=== PATIENT | female | born 1935 | race Caucasian/White ===

== ENCOUNTER 2023-07-02 18:19 | Inpatient (IN) | payer OTHER, SELFPAY ==
[2023-07-02] VITALS (7 sets, daily range): BP systolic 170–212; BP diastolic 62–93; BMI 29.2
--- NOTE | 2023-07-02 16:10 | ED.GENMED ---
History of Present Illness
General
Chief Complaint: Fall
Source: patient and ambulance crew
Exam Limitations: none
Time Seen by Provider: 07/02/23 15:57
Nursing documentation reviewed up to this point in time: agreed with
Travel History
Have you had any contact with someone who has COVID-19?: No
Do you have any symptoms of coronavirus? Fever > 100 degrees, chills, cough, shortness of breath, sore throat, loss of taste or smell, muscle aches, or headache?: No
History of Present Illness
History of Present Illness:
88 yo female presents to the emergency department complaining of trip and fall and right hip/groin pain. She noted that her foot is externally rotated, but she was able to move it back in. She has not stood up since this happened. She denies any
her head, denies any blood thinners.
Past History
Past History
ED Past Medical History: HTN and Hypercholesterolemia
ED Past Surgical History: Gynecological (Partial hysterectomy) and Orthopedic (Left ankle surgery)
Social History
Tobacco: Former smoker
Alcohol: None
Drug: None
Review of Systems
Review of Systems
Allergies reviewed?: Yes
All Other Systems: Not applicable
Constitutional: Reports no symptoms
EENT: Reports no symptoms
Respiratory: Reports no symptoms
Cardiac: Reports no symptoms
ABD/GI: Reports no symptoms
: Reports no symptoms
Musculoskeletal: Reports joint pain
Skin: Reports no symptoms
Neurological: Reports no symptoms
Endocrine: Reports no symptoms
Hematologic/Lymphatic: Reports no symptoms
Psychiatric: Reports no symptoms
Phy Exam
Physical Exam
Physical Exam:
Physical Exam
General: no apparent distress, not acutely ill
Neck: supple. no meningeal signs. normal posterior pharynx
Heart: s1/s2 regular rate and rhythm, no murmur. equal radial
pulses.
HEENT: Pupils equal round reactive to light, EOMI
Lungs: no acute respiratory distress. clear bilaterally
Abdomen: normal bowel sounds. not tender. no CVAT
Neuro: alert and oriented. no focal neurological deficits cranial nerves II through XII intact
Skin: no rash
Psychiatric: well kept. interactive and cooperative
Extremities: no edema. no calf tenderness. negative homans. good distal pulses, right hip tender to palpation
Course
Orders/Labs/Results
Orders:
Orders
07/02/23 16:07
IV Insert/Care/Rem.- Treatment PRN
Hip, Right 2-3 Views [CR Hip - RT w/wo Pel 2-3 Vw*] Urgent
Comment:
Reason For Exam: right hip pain after fall
Include a pelvis x-ray?: Yes
07/02/23 16:18
Type+Screen Urgent
Complete Blood Count/With Diff Urgent
Comprehensive Metabolic Panel Urgent
Abnormal Lab Results
07/02/23
16:18
RBC 4.13 L 10^6/uL
(4.20-5.40)
Hct 35.9 L %
(37.0-47.0)
Absolute Lymphs (auto) 0.8 L 10^3/uL
(1.2-3.4)
Immature Gran % 0.7 H %
(0-0.5)
Neutrophils % 79.9 H %
(42.2-75.2)
Lymphocytes % 12.9 L %
(20.5-51.1)
Sodium 126 L mmol/L
(135-145)
Chloride 96 L mmol/L
(98-107)
BUN 18 H mg/dl
(7-17)
Glucose 111 H mg/dl
(70-99)
07/02/23 16:18
07/02/23 16:18
Vital Signs
Initial and Last Documented VS:
Initial Vital Signs
Temp Pulse Resp BP Pulse Ox
98.1 F 63 16 212/65 94
07/02/23 15:00 07/02/23 15:00 07/02/23 15:00 07/02/23 15:00 07/02/23 15:00
Last Documented Vital Signs
Temp Pulse Resp BP Pulse Ox
98.1 F 63 16 180/62 94
07/02/23 15:00 07/02/23 15:00 07/02/23 15:00 07/02/23 16:18 07/02/23 15:00
MDM/Problems Addressed
Differential Diagnosis Includes:
Right hip fracture, pelvic fracture
MDM/Problems Addressed:
88-year-old female with right proximal femur fracture, transcervical. Hyponatremia. Unclear etiology. Admit to hospitalist. Orthopedics, Dr. Martin notified.
*Radiology
Radiology exam reviewed: radiology read reviewed (Right hip x-ray shows proximal femur fracture)
*Pulse Oximetry
Patient hypoxic: no
*Irrigator Overhead Interpretation
Rate: Irrigator Overhead- N/A
*Critical Care Note
Total Time (30-74mins, 75-104mins- exclusive of procedures): Not Applicable
Patient Management
Social determinants of health affecting care: Living situation
Discussion with other providers: Hospitalist and Posting Machine Operator (Dr. Martin, orthopedics)
Escalation/DeEscalation of care consider admission/obs:
Admit indicated
ED Attending Note
-
Portions of this chart may have been created with voice recognition software.� Occasional wrong word or��sound alike� substitutions may have occurred due to the inherent limitations of voice recognition software.
Discharge Plan
Departure
Patient Disposition: Admit
Date of Disposition: 07/02/23
Time of Disposition: 17:11
Admit to: Telemetry
Presentation/result/management discussed w/ accepting MD/DO: Hospitalist
Patient with high blood pressure during this ER visit?: Yes
Condition: Fair
Discharge Problem:
Closed transcervical fracture of proximal end of right femur, Acute hyponatremia
Instructions: BLOOD PRESSURE
Prescriptions:
No Action
atenolol 50 mg tablet
50 mg PO DAILY
cyclosporine [Restasis] 0.05 % dropperette
1 drp LEFT EYE BID
cyclosporine [Restasis] 0.05 % dropperette
1 drp RIGHT EYE DAILY
PreserVision AREDS 2,148 mcg-113 mg-45 mg-17.4mg Tablet
1 tab PO BID
Referrals:
UNKNOWN - PT DOES,NOT KNOW [Family Provider] -
Interventions
Interventions:
*Risk Screen - Suicide Last Done: 07/02/23 15:03
*General Assessment Last Done: 07/02/23 15:03
*Neglect/Abuse Screening Last Done: 07/02/23 15:03
*ED COVID-19 Vaccine History Last Done: 07/02/23 15:03
ED-Musculoskeletal Assessment Last Done: 07/02/23 15:05
ED- Neurological Assessment Last Done: 07/02/23 15:04
ED-Skin Assessment Last Done: 07/02/23 15:05
Discharge Date and Time
Print Language: KOREAN
[2023-07-02 16:30] LABS: % Basophils 0.3 % (0-2); % Eosinophils 1.8 % (0-6); % Immature Granulocytes 0.7 % (0-0.5); % Lymphocytes 12.9 % (20.5-51.1); % Monocytes 4.4 % (1.7-9.3); % Neutrophils 79.9 % (42.2-75.2); Absolute Eosinophils 0.1 10^3/uL (0-0.7); Absolute Lymphocytes 0.8 10^3/uL (1.2-3.4); Absolute Monocytes 0.3 10^3/uL (0.1-0.6); Absolute Neutrophils 4.9 10^3/uL (1.4-6.5); Hematocrit 35.9 % (37.0-47.0); Hemoglobin 12.3 g/dL (12.0-16.0); Mean Corp Hgb Conc. 34.3 g/dL (33.0-37.0); Mean Corpuscular Hgb 29.8 pg (27.0-31.0); Mean Corpuscular Volume 86.9 fL (81.0-99.0); Mean Platelet Volume 8.9 fL (7.4-10.4); Nucleated Red Blood Cells % 0 %; Platelet Count 312 10^3/uL (130-400); Red Blood Cell Count 4.13 10^6/uL (4.20-5.40); Red Cell Dist. Width 13.7 % (11.5-14.5); White Blood Cell Count 6.1 10^3/uL (4.8-10.8)
[2023-07-02 16:49] LABS: ALT (SGPT) 15 U/L (0-35); AST (SGOT) 27 U/L (14-36); Alkaline Phosphatase 70 U/L (38-126); Blood Urea Nitrogen 18 mg/dl (7-17); Calcium 9.7 mg/dl (8.4-10.2); Carbon Dioxide 24 mmol/L (22-30); Chloride 96 mmol/L (98-107); Glucose 111 mg/dl (70-99); Potassium 3.7 mmol/L (3.5-5.1); Sodium 126 mmol/L (135-145); Total Bilirubin 0.8 mg/dl (0.2-1.3); Total Protein 7.2 g/dl (6.3-8.2); eGFR > 60.00
[2023-07-02 17:45] LABS: Osmolality Serum 271 mOsm/kg (275-300)
--- NOTE | 2023-07-02 17:50 | HPS.HSE ---
Family Physician
-
Family Physician: NOT KNOW UNKNOWN - PT DOES
Chief Complaint
-
Fall
History of Present Illness
Patient is an 88-year-old female past medical history of hypertension who presents with right hip pain following a fall earlier today. Patient reports she got up from a chair when her sneaker got caught on carpet. She was unable to recover and
fell. She notes her foot is rotated, and she has not been able to stand since the fall. She denies any in her head during the event.
Medical History
Past Medical History
Past Medical History: Reports Other
Additional Past Medical History:
Essential Hypertension
Past Surgical History: Reports Other
Additional Past Surgical History:
Left Ankle Surgery
Partial Hysterectomy
Social History
Tobacco: Former Smoker
Alcohol: None
Family History
Family History: Not pertinent
Allergies / Home Medications
Allergies reflects when Allergies were last updated in [employer].
Home Medications with original date entered in [employer]
Allergy/Medication List:
Allergies
Allergy/AdvReac Type Severity Reaction Status Date / Time
No Known Allergies Allergy Unverified 12/30/20 14:06
Home Medications
atenolol 50 mg tablet 50 mg PO DAILY 07/02/23
cyclosporine 0.05 % eye drops in a dropperette (Restasis) 1 drp LEFT EYE BID 07/02/23
cyclosporine 0.05 % eye drops in a dropperette (Restasis) 1 drp RIGHT EYE DAILY 07/02/23
vitamins A,C,N-ziye-thwaop 2,148 mcg-113 mg-45 mg-17.4 mg tablet (PreserVision AREDS) 1 tab PO BID 07/02/23
Review of Systems
-
A 12 point ROS was completed and negative except as noted: Yes
Constitutional: Denies Fever or Chills
Respiratory: Denies Cough or Trouble Breathing
Cardiac: Denies Chest Pain or Palpitations
Physical Exam
Vital Signs
Vital Signs
Temp Pulse Resp BP Pulse Ox
98.1 F 63 16 180/62 94
07/02/23 15:00 07/02/23 15:00 07/02/23 15:00 07/02/23 16:18 07/02/23 15:00
Physical Exam
General: Comfortable and Conversant
HEENT: Anicteric and Moist mucous membranes
Respiratory: Clear and Non Labored Respirations
Cardiac: S1/S2, Regular Rhythm and Murmur (2/6 systolic murmur heard best at right upper sternal border)
GI: Soft and Non Tender
Rectal: Deferred by Provider
Musculoskeletal: No Clubbing, No Cyanosis and Other (RLE slightly shortened and externally rotated)
Skin: Warm and Dry
Neuro: Awake, Alert, Oriented and Nonfocal/grossly intact
Psych: Calm
Laboratory Results
-
07/02/23 16:18
07/02/23 16:18
Laboratory Results
Total Bilirubin 0.8 mg/dl (0.2-1.3) 07/02/23 16:18
AST 27 U/L (14-36) 07/02/23 16:18
ALT 15 U/L (0-35) 07/02/23 16:18
Alkaline Phosphatase 70 U/L (38-126) 07/02/23 16:18
Data Reviewed
-
Diagnostic Radiology: Report Reviewed by me
Lab Data: Labs Reviewed by me
Impression/Plan
-
Right Hip Fracture
-Consult Ortho
-NPO after midnight for possible OR tomorrow afternoon, pending repeat sodium levels
Hyponatremia
-Consult Nephrology
-Check Urine Sodium, and Urine Osmo
-Give NSS overnight as patient appears slightly volume depleted
-Recheck sodium in AM
Essential Hypertension
-Continue atenolol
DVT proph: SCDs
Code Status: Full Code
--- NOTE | 2023-07-02 18:14 | W.PN.UPDATE ---
Update Note
Progress Note Update
This is an addendum to H&P by Shira Wilkerson on 07/02/23
pt seen and examined independently--agree with findings as set forth
GENERAL: well developed, well nourished, female in no apparent distress
HEENT: NC/AT--no O2
HEART: regular rate and rhythm, +S1, +S2, 3/6 DYLLAN
LUNGS : clear to auscultation bilaterally
ABDOM: soft, nontender, nondistended, + bowel sounds
EXT: no cyanosis, clubbing, or edema, right leg shortened and externally rotated
NEUROLOGIC: grossly intact, seems hard of hearing
mechanical fall without prodrome--foot stuck--Right Hip Fracture--consult ortho--NPO after midnight for possible OR tomorrow afternoon, pending repeat sodium levels--will eventually need PT/OT--pain control
Hyponatremia--sodium too low for surgery--cont IVF--check Urine Sodium, and Urine Osmo--consult renal--hopefully sodium will improve post IVF
Essential Hypertension--Continue atenolol
DVT proph: SCDs
Code Status: Full Code
[2023-07-02 18:23] LABS: TSH Reflex To Free T4 3.72 uIU/ml (0.47-4.68)
[2023-07-02] MEDS: DILAUDID 0.25 MG IV (20:01)
[2023-07-02] MEDS: SENOKOT 17.1999999999999993 MG PO (22:12)
[2023-07-02] MEDS: COLACE 100 MG PO (22:12)
[2023-07-02] MEDS: RESTASIS 0.05% OPHTHALMIC EMULSION 1 DROPS LEFT EYE (22:18)
[2023-07-02] MEDS: ROXICODONE 2.5 MG PO (22:19)
[2023-07-02] MEDS: OCUVITE SOFTGEL PO ×2 (22:19→22:25)
[2023-07-02] MEDS: NSS 1000 IV (22:19)
--- NOTE | 2023-07-02 23:00 | PTCARENOTE ---
Pt admitted to 2S. AAOX3, anxious and ge weakness. SBP has been >160. Director Of Institutional Giving notified. LUMBEE and forgetful at times. SB in the monitor. Traces B/L LE and Rt hip edema. C/O minimal pain. See MAR. Lung sounds are diminished at the bases, shallow breathing.
SaO2 94% RA. Abd round and obese. purewick in place. pt will be NPO after midnight. Call manuel within reach. Will continue with tx plan.
[2023-07-02] MEDS: TYLENOL 650 MG PO (23:07)
[2023-07-03 01:33] LABS: Urine Albumin Negative (Neg - Trace); Urine Bilirubin Negative (Negative); Urine Character Clear (Clear); Urine Color Yellow; Urine Glucose Negative (Negative); Urine Ketone 3+ (Negative); Urine Leukocyte Trace (Negative); Urine Nitrite Negative (Negative); Urine Occult Blood Negative (Negative); Urine Urobilinogen Negative (Neg - 1+)
[2023-07-03 01:41] LABS: Urine Squamous Cell 16-20 /LPF (Few)
[2023-07-03 01:42] LABS: Urine Bacteria Moderate (Negative)
[2023-07-03 01:46] LABS: Urine Sodium 112 mmol/L (30-90)
[2023-07-03 02:04] LABS: Osmolality Urine 754 mOsm/kg (300-900)
[2023-07-03] MEDS: ROXICODONE 5 MG PO (02:30)
[2023-07-03 03:05] VITALS: BP 139/51
[2023-07-03] MEDS: TYLENOL 650 MG PO ×3 (03:38→20:29)
[2023-07-03 04:57] LABS: Hematocrit 32.2 % (37.0-47.0); Hemoglobin 11.1 g/dL (12.0-16.0); Mean Corp Hgb Conc. 34.5 g/dL (33.0-37.0); Mean Corpuscular Hgb 29.9 pg (27.0-31.0); Mean Corpuscular Volume 86.8 fL (81.0-99.0); Mean Platelet Volume 9.5 fL (7.4-10.4); Platelet Count 273 10^3/uL (130-400); Red Blood Cell Count 3.71 10^6/uL (4.20-5.40); Red Cell Dist. Width 13.5 % (11.5-14.5); White Blood Cell Count 9.2 10^3/uL (4.8-10.8)
[2023-07-03 05:30] LABS: Blood Urea Nitrogen 17 mg/dl (7-17); Calcium 9.1 mg/dl (8.4-10.2); Carbon Dioxide 26 mmol/L (22-30); Chloride 95 mmol/L (98-107); Estimated Creatinine Clearance 66 ml/min; Glucose 134 mg/dl (70-99); Potassium 3.6 mmol/L (3.5-5.1); Sodium 125 mmol/L (135-145); eGFR > 60.00
[2023-07-03 07:10] VITALS: BP 156/61
--- NOTE | 2023-07-03 08:11 | W.PN.UPDATE ---
Update Note
Progress Note Update
Full ortho consult to be dictated.
88 year old female who fell onto right hip.
X-rays show right hip acute transcervical fracture.
Recommend right hip hemiarthroplasty under direction of Dr. Wilde or Dr. Roberts today.
Hyponatremia - sodium this morning 125.
Will await nephrology consultation and medical clearance to proceed to OR.
Right hip marked as correct surgical site.
Consent obtained and placed in patient's chart.
IV antibiotics and irrigation exhibition specialist to OR.
NPO for OR.
[2023-07-03] MEDS: DILAUDID 0.25 MG IV ×2 (08:26→14:43)
[2023-07-03] MEDS: RESTASIS 0.05% OPHTHALMIC EMULSION 1 DROPS LEFT EYE ×2 (08:26→20:30)
[2023-07-03] MEDS: RESTASIS 0.05% OPHTHALMIC EMULSION 1 DROPS RIGHT EYE (08:27)
[2023-07-03] MEDS: COLACE PO (08:46)
[2023-07-03] MEDS: OCUVITE SOFTGEL PO (08:46)
[2023-07-03] MEDS: SENOKOT PO ×2 (08:46→20:40)
[2023-07-03] MEDS: TENORMIN PO (08:46)
[2023-07-03] MEDS: TYLENOL PO ×2 (09:11→16:42)
--- NOTE | 2023-07-03 10:14 | W.CON.NEPH ---
Consultation
-
Date/Time Consultation Requested: 07/03/2023 7 AM
Date/Time Consultation Performed: 07/03/2023 10:00 AM
Requesting Provider: Libra
Performing Provider: Ty
Reason for Consultation: Hyponatremia
Medical History
-
Chief Complaint: Hyponatremia
History of Present Illness:
The patient is an 88-year-old female with a past medical history of hypertension maintained on atenolol. She is maintained chronically on Restasis for dry eye. She has a prior history of hypothyroidism but stated that her medications were
discontinued a few years prior . She presented to the hospital last evening following a trip and fall with subsequent right hip pain and fracture. On presentation to the hospital her serum sodium level was depressed at 126. She was given normal
saline last evening and her sodium is now worsened to 125 and nephrology was asked to see the patient. The patient does admit to having some visual hallucinations this past week.
Past Medical History
Hypertension
Dry eye
Macular degeneration
History of ankle surgery
Partial Hysterectomy
Previous history of hyponatremia off medication
Social History
Tobacco: Former Smoker
Alcohol: None
Family History
No chronic kidney disease
Allergies / Home Medications
Allergy/AdvReac Type Severity Reaction Status Date / Time
No Known Allergies Allergy Unverified 12/30/20 14:06
�Medication �Instructions �Recorded �Confirmed �Type
atenolol 50 mg tablet 50 mg PO DAILY 07/02/23 07/02/23 History
cyclosporine 0.05 % eye drops in a 1 drp LEFT EYE BID 07/02/23 07/02/23 History
dropperette (Restasis)
cyclosporine 0.05 % eye drops in a 1 drp RIGHT EYE DAILY 07/02/23 07/02/23 History
dropperette (Restasis)
vitamins A,C,O-lntu-vcaacf 2,148 1 tab PO BID 07/02/23 07/02/23 History
mcg-113 mg-45 mg-17.4 mg tablet
(PreserVision AREDS)
Review of Systems
-
History Source: Patient
All other systems: Negative unless noted
Constitutional: No Symptoms
EENT: Other (Headache which is positional)
Respiratory: No Symptoms
Cardiac: No Symptoms
Abdomen/GI: No Symptoms
: No Symptoms
Musculoskeletal: Other (Right hip pain)
Skin: No Symptoms
Neurological: Headache and Other (Noted for some hallucinations earlier this week of new onset)
Physical Exam
Vital Signs
Vital Signs
Temp Pulse Resp BP Pulse Ox
97.9 F 56 18 156/61 95
07/03/23 07:10 07/03/23 08:46 07/03/23 07:10 07/03/23 07:10 07/03/23 07:10
Lab Results
07/03/23 03:57
07/03/23 03:57
WBC 9.2 10^3/uL (4.8-10.8) 07/03/23 03:57
RBC 3.71 10^6/uL (4.20-5.40) L 07/03/23 03:57
Hgb 11.1 g/dL (12.0-16.0) L 07/03/23 03:57
Hct 32.2 % (37.0-47.0) L 07/03/23 03:57
Plt Count 273 10^3/uL (130-400) 07/03/23 03:57
Sodium 125 mmol/L (135-145) L 07/03/23 03:57
Potassium 3.6 mmol/L (3.5-5.1) 07/03/23 03:57
Chloride 95 mmol/L (98-107) L 07/03/23 03:57
Carbon Dioxide 26 mmol/L (22-30) 07/03/23 03:57
BUN 17 mg/dl (7-17) 07/03/23 03:57
Creatinine 0.5 mg/dL (0.6-1.0) L 07/03/23 03:57
eGFR > 60.00 07/03/23 03:57
Glucose 134 mg/dl (70-99) H 07/03/23 03:57
Calcium 9.1 mg/dl (8.4-10.2) 07/03/23 03:57
Albumin 4.0 g/dl (3.5-5.0) 07/02/23 16:18
Physical Exam
General: AOx3
HEENT: PERRL, EOMI, Anicteric, Conjunctivae Clear, Ear/Nose Intact, Hearing Normal, Oropharynx Clear/Moist, Dentition Intact, Neck Supple, Trachea Midline, No JVD and No Thyromegaly
Respiratory: Clear
Cardiac: S1/S2, Regular Rate/Rhythm, Murmur (4 out of 6 systolic ejection murmur best heard at left sternal border) and Pulses (+2 upper and lower)
Breast: Deferred by me
Abdomen: Soft, Nontender, Nondistended, Normal Bowel Sounds and No Hepatosplenomegaly
Rectal: Deferred by Provider
Genito-urinary: No Costovertebral Tender and Clear Urine (Concentrated urine noted)
Musculoskeletal: No Clubbing, No Cyanosis, No Edema and Other (Upper extremities 5 out of 5 left lower extremity 5 out 5, right lower extremity externally rotated and immobile)
Skin: No Rash
Neuro: Nonfocal/Grossly Intact and CN II-XII (Grossly intact)
Hematologic/Lymphatic: No Cervical Lymphadenopathy, No Submandibular Lymphadenopathy and No Supraclavicular Lymphadenopathy
Psych: Mood/afflect pleasant, Insight/judgement good and Appropriate
Assessment/Plan
-
Impression:
Euvolemic hyponatremia
Hypertension
Status post fall with subsequent right hip fracture
Plan:
Hyponatremia:
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
Discontinue normal saline
Urine sodium of 112 not consistent with volume depletion
Maintain fluid restriction at 1200cc per day once po
7.5 mg Samsca provided, recheck lytes at 5pm
Would hold surgery today until serum sodium can be safely adjusted upward
Obtain TSH and free T4
Will check chest x-ray given history of prior tobacco use and now with possible SIADH
HTN:
-maintain atenolol
-Pain likely exacerbating hypertension
-Can provide IV hydralazine as needed if needed
Data Reviewed
-
Radiology: Report Reviewed by me (Right hip x-ray reviewed)
Labs: Labs Reviewed by me (Reviewed urine sodium urine osmolality BMP), Discussed with Physician, Discussed with Patient and Discussed with Family
Old Records: Requested (Old serum sodium levels to be obtained)
--- NOTE | 2023-07-03 11:04 | W.PN.HOSP.TC ---
Today's Communication/Plan
-
apprec renal
advance diet 1200ml fluid restriction
Assessment / Plan
Assessment / Plan
pt is an 88 year old female
mechanical fall without prodrome--foot stuck--Right Hip Fracture--apprec ortho--renal to clear for OR
Hyponatremia--sodium too low for surgery--stop IVF--apprec renal--samsca per renal--follow sodium
Essential Hypertension--Continue atenolol
DVT proph: SCDs
Code Status: Full Code
Anticipated Discharge: > 48 hours
Subjective/Interval History
-
Date of Service: July 03, 2023
pt without c/o
Objective Data
-
Labs:
Laboratory Results
07/03/23 07/03/23
03:57 17:00
WBC 9.2
Hgb 11.1 L
Hct 32.2 L
Plt Count 273
Sodium 125 L Pending
Potassium 3.6 Pending
Chloride 95 L Pending
Carbon Dioxide 26 Pending
BUN 17
Creatinine 0.5 L
Glucose 134 H
Calcium 9.1
Vital Signs:
max temp for 24 hours
07/03/23
03:05
Temp 97.5 F
Vital Signs
Temp Pulse Resp BP Pulse Ox
97.9 F 56 18 156/61 95
07/03/23 07:10 07/03/23 08:46 07/03/23 07:10 07/03/23 07:10 07/03/23 07:10
I&O
07/02/23 07/03/23 07/04/23
06:59 06:59 06:59
Intake Total 990 / 990
Output Total 350 / 350
Balance 640 / 640
Review of Systems
-
All other systems: Reviewed and negative
Physical Exam
-
General: Well Developed, Well Nourished and No Apparent Distress
HEENT: Normocephalic and Atraumatic
Respiratory: Clear to Auscultation; Negative Wheezes, Rales, Rhonchi or Crackles
Cardiac: Regular Rhythm and S1/S2; Negative Murmur
GI: Soft, Nontender, Nondistended and Normal Bowel Sounds
Musculoskeletal: No Clubbing, No Cyanosis and No Edema
Neuro: Awake
--- NOTE | 2023-07-03 11:33 | CM ---
Patient seen at bedside with son and daughter in law, physician. Patient lives alone in a ranch style home during the week but goes to her son's home on the weekends. Patient has a physician at [facility] Amari Mathews and uses the [facility] at
[place]. Patient s/p fall and plan is for surgery possibly tomorrow pending physician assessment. Patient family were provided list of SNF options and PAC data reviewed. Medicare.gov information reviewed. Patient asked about [facility]. Patient
daughter works in infection control with [employer] and patient is very proud of her. Patient son and DIL very involved and supportive. CM will continue to follow for discharge planning needs.
Plan; TBD pending surgery possible need for SNF
[2023-07-03] MEDS: SAMSCA 7.5 MG PO (12:04)
--- NOTE | 2023-07-03 12:35 | CON.ORTHO ---
Consultation
-
Date/Time Consultation Requested: 07/02/2023
Date/Time Consultation Performed: 07/03/2023
Requesting Provider: Shira Wilkerson PA-C
Performing Provider: Narda Garcia PA-C, for Dr. Joe Jane
Reason for Consultation: Right hip fracture
Consultation - Orthopedics
History
HPI: This is an 88-year-old female who presented to [facility] after sustaining a fall onto her right hip. She reports she was getting her taxes done when she went to stand up from a seat. Her foot got caught on the floor as she went to
turn, causing her to trip on the leg of the chair. She landed directly on her right hip. She experienced immediate pain and inability to ambulate, and was brought to the hospital via EMS. X-rays were taken and demonstrated an acute transcervical
fracture of the right hip. She was admitted to the hospitalist service and orthopedic team was consulted for definitive management of her fracture. She reports her pain is well-controlled at rest. She does have a prior history of a left ankle
ORIF as well as removal of hardware. She denies any prior issues with anesthesia.
Past medical history: Significant for hypertension.
Past surgical history: Significant for left ankle ORIF followed by subsequent removal of hardware, Partial hysterectomy.
Social history: Tobacco or alcohol use. Currently lives independently, but getting ready to move into an apartment at her son's house. Uses walker at baseline.
family history: Noncontributory.
Review of systems: All systems reviewed and negative except for those mentioned in HPI.
Allergies / Home Medications
Allergy/AdvReac Type Severity Reaction Status Date / Time
No Known Allergies Allergy Unverified 12/30/20 14:06
�Medication �Instructions �Recorded
atenolol 50 mg tablet 50 mg PO DAILY Blood Pressure 07/02/23
cyclosporine 0.05 % eye drops in a 1 drp LEFT EYE BID Eye Condition 07/02/23
dropperette (Restasis)
cyclosporine 0.05 % eye drops in a 1 drp RIGHT EYE DAILY Eye Condition 07/02/23
dropperette (Restasis)
vitamins A,C,E-lfop-lhncum 2,148 1 tab PO BID Supplement 07/02/23
mcg-113 mg-45 mg-17.4 mg tablet
(PreserVision AREDS)
Vital Signs / Lab Results
Temp Pulse Resp BP Pulse Ox
97.9 F 56 18 156/61 95
07/03/23 07:10 07/03/23 08:46 07/03/23 07:10 07/03/23 07:10 07/03/23 07:10
07/03/23 03:57
Physical examination:
General: Well-developed, well-nourished female in no acute distress.
HEENT: Atraumatic, normocephalic. Neck supple.
Lungs: Nonlabored breathing on room air. No audible wheezing.
Heart: Regular rate and rhythm.
Right hip: Mild tenderness to palpation about lateral hip. No abrasions or skin breakdown. Mild swelling. Minimal ecchymoses. Range of motion not tested due to known fracture. Right leg externally rotated. Calf is soft and nontender to
palpation. Neurovascular intact distally.
Radiographic studies:
X-rays of the right hip from [facility] on 07/02/2023 shows evidence of an acute transcervical fracture of the proximal right femur with 2 cm impaction of the distal fracture fragment.
Assessment / Plan
Assessment: Right hip femoral neck fracture.
Plan: Unfortunately, mildly sustained a femoral neck fracture during her fall yesterday. This will require surgical intervention in the form of a right hip hemiarthroplasty. The procedure was explained in detail along with the associated risks,
benefits, and recovery process. Her son and [id number] were present during the discussion. Surgical and blood transfusion consents were obtained and placed in the patient's chart. The right hip was marked as the correct surgical site. She
will need to be n.p.o. for the surgery. IV antibiotics and irrigation are on-call to the OR. She was noted to be hyponatremic, with a sodium of 126 on admission. We are currently awaiting official evaluation by nephrology with recommendations on
timing of surgery based on the correction of her sodium levels.
Update after patient was seen on rounds this morning. It does not appear as though she will be cleared to proceed with the OR today. Will continue to monitor her sodium levels and will plan to tentatively proceed with a right hip
hemiarthroplasty under the direction of Dr. Roberts pending clearance.
[2023-07-03 15:48] VITALS: BP 134/53
[2023-07-03] MEDS: ZOFRAN 4 MG IV (16:36)
[2023-07-03 17:07] LABS: Carbon Dioxide 28 mmol/L (22-30); Chloride 91 mmol/L (98-107); Potassium 3.6 mmol/L (3.5-5.1); Sodium 124 mmol/L (135-145)
--- NOTE | 2023-07-03 17:16 | W.PN.UPDATE ---
Update Note
Progress Note Update
Patient vomited samsca pill
will give 3% saline instead for 250cc at 30cc/hr
[2023-07-03] MEDS: SODIUM CHLORIDE 3% 250 IV (17:49)
[2023-07-03 19:35] VITALS: BP 135/61
[2023-07-03] MEDS: COLACE 100 MG PO (20:29)
[2023-07-03] MEDS: OCUVITE SOFTGEL 1 CAP PO (20:29)
[2023-07-03 23:16] VITALS: BP 134/63
[2023-07-04] VITALS (13 sets, daily range): BP systolic 105–150; BP diastolic 38–71; PULSE 73–97; O2SAT 98
[2023-07-04] MEDS: TYLENOL PO ×4 (00:30→12:00)
[2023-07-04] MEDS: ROXICODONE 5 MG PO ×3 (05:48→21:54)
--- NOTE | 2023-07-04 06:01 | PTCARENOTE ---
Complete bed bath, linen/gown changed, and 1st set of CHG cloths used.
[2023-07-04 06:19] LABS: Hematocrit 35.1 % (37.0-47.0); Hemoglobin 11.6 g/dL (12.0-16.0); Mean Corpuscular Hgb 29.7 pg (27.0-31.0); Mean Corpuscular Volume 89.8 fL (81.0-99.0); Mean Platelet Volume 9.4 fL (7.4-10.4); Platelet Count 259 10^3/uL (130-400); Red Blood Cell Count 3.91 10^6/uL (4.20-5.40); Red Cell Dist. Width 14.2 % (11.5-14.5); White Blood Cell Count 7.9 10^3/uL (4.8-10.8)
[2023-07-04 06:38] LABS: Blood Urea Nitrogen 14 mg/dl (7-17); Calcium 9.3 mg/dl (8.4-10.2); Carbon Dioxide 28 mmol/L (22-30); Chloride 98 mmol/L (98-107); Estimated Creatinine Clearance 66 ml/min; Glucose 115 mg/dl (70-99); Magnesium 1.9 mg/dl (1.6-2.3); Sodium 128 mmol/L (135-145); eGFR > 60.00
[2023-07-04 07:08] LABS: TSH Reflex To Free T4 3.46 uIU/ml (0.47-4.68)
[2023-07-04] MEDS: SENOKOT PO (08:00)
[2023-07-04] MEDS: COLACE PO (08:00)
[2023-07-04] MEDS: OCUVITE SOFTGEL PO ×2 (08:00→21:32)
--- NOTE | 2023-07-04 14:00 | PTCARENOTE ---
Pt received from the PACU via bed. Transport was w/o incident. Pt is AAOx3, HRR, lungs are clear and decreased. Resp. easy Pulse ox 98% on 2L via nc. Pt denies pain or nausea at this time. Pt had been medicated for pain in PACU prior to transfer
back to med/surg. floor. Pt's right hip with an Aquacell dressing c/d/i no drainage noted. Pt and Pt's family instructed on plan of care. Pt and family verbalized understanding of instructions. Call manuel is within reach.
[2023-07-04] MEDS: RESTASIS 0.05% OPHTHALMIC EMULSION 1 DROPS LEFT EYE ×2 (15:11→21:44)
[2023-07-04] MEDS: RESTASIS 0.05% OPHTHALMIC EMULSION 1 DROPS RIGHT EYE (15:11)
[2023-07-04] MEDS: TYLENOL 650 MG PO ×2 (15:13→21:44)
[2023-07-04] MEDS: TENORMIN 50 MG PO (15:14)
--- NOTE | 2023-07-04 15:23 | CM ---
Patient seen at bedside with physician. CM called to patient son and daughter in law, referrals sent via all scripts to [facility], [facility] and [facility] CM will continue to follow for discharge planning needs.
Plan; SNF; referrals sent pending pt/ot and medical treatment plan.
--- NOTE | 2023-07-04 15:33 | W.PN.NEPH.PH ---
Today's Communication / Plan
-
follow BMP
Assessment/Plan
-
Impression:
Euvolemic hyponatremia
Hypertension
Status post fall with subsequent right hip fracture
Plan:
-follow BMP
-If Na drops, try samsca again
-repeat urine tomorrow
-no IVF
-
-
Date of Service: July 04, 2023
CC / HPI / ROS
-
Chief Complaint:
hyponatremia
History of Present Illness:
Na up to 128 with 3%
no more N/V
s/p right JUSTIN 07/03
BP stable
Review of Systems:
no CP/SOB
Labs
-
Labs:
WBC 7.9 10^3/uL (4.8-10.8) 07/04/23 05:51
RBC 3.91 10^6/uL (4.20-5.40) L 07/04/23 05:51
Hgb 11.6 g/dL (12.0-16.0) L 07/04/23 05:51
Hct 35.1 % (37.0-47.0) L 07/04/23 05:51
Plt Count 259 10^3/uL (130-400) 07/04/23 05:51
Sodium 128 mmol/L (135-145) L 07/04/23 05:51
Potassium 4.0 mmol/L (3.5-5.1) 07/04/23 05:51
Chloride 98 mmol/L (98-107) 07/04/23 05:51
Carbon Dioxide 28 mmol/L (22-30) 07/04/23 05:51
BUN 14 mg/dl (7-17) 07/04/23 05:51
Creatinine 0.6 mg/dL (0.6-1.0) 07/04/23 05:51
eGFR > 60.00 07/04/23 05:51
Glucose 115 mg/dl (70-99) H 07/04/23 05:51
Calcium 9.3 mg/dl (8.4-10.2) 07/04/23 05:51
Albumin 4.0 g/dl (3.5-5.0) 07/02/23 16:18
Physical Exam
-
Vital Signs:
Vital Signs
Temp Pulse Resp BP Pulse Ox
97.7 F 82 17 136/71 98
07/04/23 14:03 07/04/23 14:03 07/04/23 14:03 07/04/23 14:03 07/04/23 14:03
Cardiovascular:: Regular rate and rhythm
Respiratory:: Bilateral: Coarse
Lung Excursion:: Normal
Abdomen:: Nontender and Soft
Bowel Sounds:: Normal
Extremity Edema:: None: Bilateral:
--- NOTE | 2023-07-04 15:51 | W.PN.HOSP.TC ---
Today's Communication/Plan
-
SNF Friday
PT/OT
Assessment / Plan
Assessment / Plan
pt is an 88 year old female
mechanical fall without prodrome--foot stuck--Right Hip Fracture--apprec ortho--cleared and post op day 0--PT/OT
Hyponatremia--sodium too low for surgery--stop IVF--apprec renal--samsca and 3% NaCl per renal--follow sodium--up to 128 today
Essential Hypertension--Continue atenolol
DVT proph: SCDs
Code Status: Full Code
Anticipated Discharge: > 48 hours
Subjective/Interval History
-
Date of Service: July 04, 2023
pt doing well post op
Objective Data
-
Labs:
Laboratory Results
07/04/23 07/04/23
05:51 15:34
WBC 7.9
Hgb 11.6 L
Hct 35.1 L
Plt Count 259
Sodium 128 L Pending
Potassium 4.0 Pending
Chloride 98 Pending
Carbon Dioxide 28 Pending
BUN 14 Pending
Creatinine 0.6 Pending
Glucose 115 H Pending
Calcium 9.3 Pending
Vital Signs:
max temp for 24 hours
07/03/23
23:16
Temp 98.3 F
Vital Signs
Temp Pulse Resp BP Pulse Ox
97.7 F 82 17 136/71 98
07/04/23 14:03 07/04/23 14:03 07/04/23 14:03 07/04/23 14:03 07/04/23 14:03
I&O
07/03/23 07/04/23 07/05/23
06:59 06:59 06:59
Intake Total 990 / 990 840 / 840 100 / 100
Output Total 350 / 350 550 / 550
Balance 640 / 640 290 / 290 100 / 100
Review of Systems
-
All other systems: Reviewed and negative
Physical Exam
-
General: Well Developed, Well Nourished and No Apparent Distress
HEENT: Normocephalic, Atraumatic and Oxygen
Respiratory: Clear to Auscultation; Negative Wheezes or Rhonchi
Cardiac: Regular Rhythm and S1/S2; Negative Murmur
GI: Soft, Nontender, Nondistended and Normal Bowel Sounds
Musculoskeletal: No Clubbing, No Cyanosis and No Edema
Neuro: Awake and Alert
[2023-07-04 16:49] LABS: Osmolality Urine 620 mOsm/kg (300-900)
[2023-07-04 16:50] LABS: Blood Urea Nitrogen 16 mg/dl (7-17); Calcium 9.2 mg/dl (8.4-10.2); Carbon Dioxide 27 mmol/L (22-30); Chloride 92 mmol/L (98-107); Estimated Creatinine Clearance 66 ml/min; Glucose 132 mg/dl (70-99); Potassium 3.7 mmol/L (3.5-5.1); Sodium 129 mmol/L (135-145); eGFR > 60.00
[2023-07-04] MEDS: ANCEF 5 IV (16:57)
[2023-07-04] MEDS: ASPIRIN 325 MG PO (16:58)
[2023-07-04] MEDS: SENOKOT 17.1999999999999993 MG PO (21:43)
[2023-07-04] MEDS: COLACE 100 MG PO (21:44)
[2023-07-04] MEDS: BACTROBAN 2% OINTMENT 1 APPLIC NASAL (22:55)
[2023-07-05] MEDS: ANCEF 5 IV (00:07)
[2023-07-05] MEDS: TYLENOL PO ×3 (00:07→23:50)
[2023-07-05 03:30] VITALS: BP 142/60
[2023-07-05 07:04] LABS: Hematocrit 31.5 % (37.0-47.0); Hemoglobin 10.4 g/dL (12.0-16.0); Mean Corpuscular Hgb 29.5 pg (27.0-31.0); Mean Corpuscular Volume 89.5 fL (81.0-99.0); Mean Platelet Volume 9.9 fL (7.4-10.4); Platelet Count 226 10^3/uL (130-400); Red Blood Cell Count 3.52 10^6/uL (4.20-5.40); Red Cell Dist. Width 14.4 % (11.5-14.5)
[2023-07-05 07:29] LABS: Blood Urea Nitrogen 20 mg/dl (7-17); Carbon Dioxide 27 mmol/L (22-30); Chloride 96 mmol/L (98-107); Estimated Creatinine Clearance 66 ml/min; Glucose 117 mg/dl (70-99); Magnesium 1.9 mg/dl (1.6-2.3); Potassium 4.2 mmol/L (3.5-5.1); Sodium 126 mmol/L (135-145); eGFR > 60.00
[2023-07-05 07:44] VITALS: BP 152/67
[2023-07-05] MEDS: ASPIRIN 325 MG PO (08:58)
[2023-07-05] MEDS: RESTASIS 0.05% OPHTHALMIC EMULSION 1 DROPS LEFT EYE ×2 (08:59→21:09)
[2023-07-05] MEDS: TENORMIN 50 MG PO (08:59)
[2023-07-05] MEDS: TYLENOL 650 MG PO ×4 (08:59→20:20)
[2023-07-05] MEDS: BACTROBAN 2% OINTMENT 1 APPLIC NASAL ×2 (08:59→20:19)
[2023-07-05] MEDS: SENOKOT PO ×2 (08:59→09:00)
[2023-07-05] MEDS: COLACE PO ×2 (08:59→14:03)
[2023-07-05] MEDS: OCUVITE SOFTGEL PO ×3 (08:59→20:24)
[2023-07-05] MEDS: RESTASIS 0.05% OPHTHALMIC EMULSION 1 DROPS RIGHT EYE (08:59)
--- NOTE | 2023-07-05 09:10 | W.PN.HOSP.TC ---
Today's Communication/Plan
-
follow sodium, cont fluid restriction
PT/OT
hopeful d/c to SNF on Friday
Assessment / Plan
Assessment / Plan
pt is an 88 year old female
mechanical fall without prodrome--foot stuck--Right Hip Fracture--apprec ortho--cleared and post op day 1--PT/OT
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 chronic--cont fluid restriction
Essential Hypertension--Continue atenolol
DVT proph: SCDs
Code Status: Full Code
Anticipated Discharge: 24 - 48 hours
Subjective/Interval History
-
Date of Service: July 05, 2023
pt c/o right thigh pain
Objective Data
-
Labs:
Laboratory Results
07/05/23
05:50
WBC 7.0
Hgb 10.4 L
Hct 31.5 L
Plt Count 226
Sodium 126 L
Potassium 4.2
Chloride 96 L
Carbon Dioxide 27
BUN 20 H
Creatinine 0.6
Glucose 117 H
Calcium 9.0
Vital Signs:
max temp for 24 hours
07/04/23
19:30
Temp 97.8 F
Vital Signs
Temp Pulse Resp BP Pulse Ox
98.0 F 70 14 152/67 94
07/05/23 07:44 07/05/23 07:44 07/05/23 07:44 07/05/23 07:44 07/05/23 07:44
I&O
07/04/23 07/05/23 07/06/23
06:59 06:59 06:59
Intake Total 840 / 840 580 / 580
Output Total 550 / 550
Balance 290 / 290 580 / 580
Review of Systems
-
All other systems: Reviewed and negative
Musculoskeletal: Reports Other (right leg pain)
Physical Exam
-
General: Well Developed, Well Nourished and No Apparent Distress
HEENT: Normocephalic and Atraumatic
Respiratory: Clear to Auscultation; Negative Wheezes or Rhonchi
Cardiac: Regular Rhythm and S1/S2; Negative Murmur
GI: Soft, Nontender, Nondistended and Normal Bowel Sounds
Musculoskeletal: No Clubbing, No Cyanosis and No Edema
Skin: Warm
Neuro: Awake
[2023-07-05 11:45] VITALS: BP 136/64
--- NOTE | 2023-07-05 13:01 | W.PN.ORTHO ---
Today's Communication / Plan
-
88-year-old female postop day 1 right hip hemiarthroplasty with Dr. Miller
-Weightbearing as tolerated to right lower extremity with assistive devices as indicated
-Posterior hip precautions x 6 weeks
-PT/OT/discharge planning
-Pain controlled on current regimen
-Diet per primary
-Recommend DVT prophylaxis of aspirin 81 mg twice daily for 30 days from date of surgery or otherwise recommended per primary
-Orthopedic surgery will continue to follow
Assessment
.
Distal Motor Intact: Yes
Dressing:
Clean, dry and intact.
Plan
.
Surgery / Date: 04 July 2023 R hip hemiarthroplasty w/ Dr. Miller
Activity:
Out of bed.
PT/OT
Subjective
.
.:
Patient resting comfortably.
Vital Signs and Labs
.
Vital Signs and Labs:
Lab Results
07/05/23 05:50
07/05/23 05:50
Temp Pulse Resp BP Pulse Ox
98.0 F 60 16 136/64 96
07/05/23 11:45 07/05/23 11:45 07/05/23 11:45 07/05/23 11:45 07/05/23 11:45
--- NOTE | 2023-07-05 13:27 | W.PN.NEPH.PH ---
Today's Communication / Plan
-
samsca
Assessment/Plan
-
Impression:
Euvolemic hyponatremia
Hypertension
Status post fall with subsequent right hip fracture
Plan:
-follow BMP
-samsca
-no IVF
-
-
Date of Service: July 05, 2023
CC / HPI / ROS
-
Chief Complaint:
hyponatremia
History of Present Illness:
Na down to 126
s/p right JUSTIN 07/03
BP stable
Review of Systems:
no CP/SOB
no N/V
Labs
-
Labs:
WBC 7.0 10^3/uL (4.8-10.8) 07/05/23 05:50
RBC 3.52 10^6/uL (4.20-5.40) L 07/05/23 05:50
Hgb 10.4 g/dL (12.0-16.0) L 07/05/23 05:50
Hct 31.5 % (37.0-47.0) L 07/05/23 05:50
Plt Count 226 10^3/uL (130-400) 07/05/23 05:50
Sodium 126 mmol/L (135-145) L 07/05/23 05:50
Potassium 4.2 mmol/L (3.5-5.1) 07/05/23 05:50
Chloride 96 mmol/L (98-107) L 07/05/23 05:50
Carbon Dioxide 27 mmol/L (22-30) 07/05/23 05:50
BUN 20 mg/dl (7-17) H 07/05/23 05:50
Creatinine 0.6 mg/dL (0.6-1.0) 07/05/23 05:50
eGFR > 60.00 07/05/23 05:50
Glucose 117 mg/dl (70-99) H 07/05/23 05:50
Calcium 9.0 mg/dl (8.4-10.2) 07/05/23 05:50
Albumin 4.0 g/dl (3.5-5.0) 07/02/23 16:18
Physical Exam
-
Vital Signs:
Vital Signs
Temp Pulse Resp BP Pulse Ox
98.0 F 60 16 136/64 96
07/05/23 11:45 07/05/23 11:45 07/05/23 11:45 07/05/23 11:45 07/05/23 11:45
Cardiovascular:: Regular rate and rhythm
Respiratory:: Bilateral: Coarse
Lung Excursion:: Normal
Abdomen:: Nontender and Soft
Bowel Sounds:: Normal
Extremity Edema:: None: Bilateral:
[2023-07-05] MEDS: SAMSCA 15 MG PO (13:53)
[2023-07-05 15:30] VITALS: BP 150/64
[2023-07-05 19:00] VITALS: BP 128/54
[2023-07-05] MEDS: COLACE 100 MG PO (20:19)
[2023-07-05] MEDS: SENOKOT 17.1999999999999993 MG PO (20:20)
[2023-07-05 23:00] VITALS: BP 149/59
[2023-07-06] VITALS (8 sets, daily range): BP systolic 135–193; BP diastolic 47–74; PULSE 60; O2SAT 96
[2023-07-06] MEDS: TYLENOL 650 MG PO ×3 (02:10→11:45)
[2023-07-06 07:17] LABS: Hematocrit 30.2 % (37.0-47.0); Hemoglobin 10.3 g/dL (12.0-16.0); Mean Corp Hgb Conc. 34.1 g/dL (33.0-37.0); Mean Corpuscular Hgb 29.9 pg (27.0-31.0); Mean Corpuscular Volume 87.5 fL (81.0-99.0); Platelet Count 248 10^3/uL (130-400); Red Blood Cell Count 3.45 10^6/uL (4.20-5.40); Red Cell Dist. Width 14.3 % (11.5-14.5); White Blood Cell Count 6.8 10^3/uL (4.8-10.8)
[2023-07-06 07:44] LABS: ALT (SGPT) 15 U/L (0-35); AST (SGOT) 30 U/L (14-36); Albumin 2.6 g/dl (3.5-5.0); Alkaline Phosphatase 72 U/L (38-126); Blood Urea Nitrogen 16 mg/dl (7-17); Calcium 9.5 mg/dl (8.4-10.2); Carbon Dioxide 27 mmol/L (22-30); Chloride 98 mmol/L (98-107); Estimated Creatinine Clearance 66 ml/min; Glucose 101 mg/dl (70-99); Magnesium 1.9 mg/dl (1.6-2.3); Potassium 3.7 mmol/L (3.5-5.1); Sodium 132 mmol/L (135-145); Total Bilirubin 0.8 mg/dl (0.2-1.3); Total Protein 5.3 g/dl (6.3-8.2); eGFR > 60.00
[2023-07-06] MEDS: ASPIRIN 325 MG PO (07:51)
[2023-07-06] MEDS: COLACE 100 MG PO (07:51)
[2023-07-06] MEDS: SENOKOT 17.1999999999999993 MG PO (07:52)
[2023-07-06] MEDS: OCUVITE SOFTGEL PO ×3 (07:53→19:59)
[2023-07-06] MEDS: RESTASIS 0.05% OPHTHALMIC EMULSION 1 DROPS LEFT EYE ×2 (07:53→19:59)
[2023-07-06] MEDS: TENORMIN 50 MG PO (07:54)
[2023-07-06] MEDS: RESTASIS 0.05% OPHTHALMIC EMULSION 1 DROPS RIGHT EYE (07:54)
[2023-07-06] MEDS: ROXICODONE 5 MG PO (09:54)
--- NOTE | 2023-07-06 10:16 | PTCARENOTE ---
Received pt in bed. AOx3, pleasant, denies pain at rest but reports sharp shooting pain when moving R leg. 5mg Ruba given. BP elevated this AM, 50mg PO Tenormin given, will reassess. PT to see pt shortly.
--- NOTE | 2023-07-06 10:21 | W.PN.NEPH.PH ---
Today's Communication / Plan
-
lasix
Assessment/Plan
-
Impression:
Euvolemic hyponatremia
Hypertension
Status post fall with subsequent right hip fracture
Plan:
-follow BMP
-lasix 20mg daily
-prn hydralazine
-no IVF
-
-
Date of Service: July 06, 2023
CC / HPI / ROS
-
Chief Complaint:
hyponatremia
History of Present Illness:
Na up to 132 with samsca
s/p right JUSTIN 07/03
BP high this am
Review of Systems:
no CP/SOB
no N/V
Labs
-
Labs:
WBC 6.8 10^3/uL (4.8-10.8) 07/06/23 05:53
RBC 3.45 10^6/uL (4.20-5.40) L 07/06/23 05:53
Hgb 10.3 g/dL (12.0-16.0) L 07/06/23 05:53
Hct 30.2 % (37.0-47.0) L 07/06/23 05:53
Plt Count 248 10^3/uL (130-400) 07/06/23 05:53
Sodium 132 mmol/L (135-145) L 07/06/23 05:53
Potassium 3.7 mmol/L (3.5-5.1) 07/06/23 05:53
Chloride 98 mmol/L (98-107) 07/06/23 05:53
Carbon Dioxide 27 mmol/L (22-30) 07/06/23 05:53
BUN 16 mg/dl (7-17) 07/06/23 05:53
Creatinine 0.5 mg/dL (0.6-1.0) L 07/06/23 05:53
eGFR > 60.00 07/06/23 05:53
Glucose 101 mg/dl (70-99) H 07/06/23 05:53
Calcium 9.5 mg/dl (8.4-10.2) 07/06/23 05:53
Albumin 2.6 g/dl (3.5-5.0) L 07/06/23 05:53
Physical Exam
-
Vital Signs:
Vital Signs
Temp Pulse Resp BP Pulse Ox
97.4 F 62 18 189/66 95
07/06/23 07:33 07/06/23 07:54 07/06/23 07:33 07/06/23 07:54 07/06/23 07:33
Cardiovascular:: Regular rate and rhythm
Respiratory:: Bilateral: Coarse
Lung Excursion:: Normal
Abdomen:: Nontender and Soft
Bowel Sounds:: Normal
Extremity Edema:: None: Bilateral:
[2023-07-06] MEDS: LASIX 20 MG PO (10:49)
--- NOTE | 2023-07-06 11:51 | W.PN.ORTHO ---
Today's Communication / Plan
-
88-year-old female postop day 1 right hip hemiarthroplasty with Dr. Miller
-Weightbearing as tolerated to right lower extremity with assistive devices as indicated
-Posterior hip precautions x 6 weeks
-PT/OT/discharge planning
-Pain controlled on current regimen
-Diet per primary
-Recommend DVT prophylaxis of aspirin 81 mg twice daily for 30 days from date of surgery or otherwise recommended per primary
-Orthopedic surgery will follow peripherally at this time. Please reengage with further questions or concerns. Discharge information completed
Assessment
.
Distal Motor Intact: Yes
Dressing:
Clean, dry and intact.
Plan
.
Surgery / Date: 04 July 2023 R hip hemiarthroplasty w/ Dr. Miller
Activity:
Out of bed.
PT/OT
Subjective
.
.:
Patient resting comfortably.
Vital Signs and Labs
.
Vital Signs and Labs:
Lab Results
07/06/23 05:53
07/06/23 05:53
Temp Pulse Resp BP Pulse Ox
97.4 F 60 18 136/71 95
07/06/23 07:33 07/06/23 10:45 07/06/23 07:33 07/06/23 10:45 07/06/23 07:33
--- NOTE | 2023-07-06 12:42 | W.PN.HOSP.TC ---
Today's Communication/Plan
-
anticipate d/c to SNF tomorrow
Assessment / Plan
Assessment / Plan
pt is an 88 year old female
mechanical fall without prodrome--foot stuck--Right Hip Fracture--apprec ortho--cleared and post op day 2--PT/OT--asa for DVT proph
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 chronic--cont fluid restriction
Essential Hypertension--Continue atenolol
DVT proph: SCDs
Code Status: Full Code
Anticipated Discharge: Within 24 hours
Subjective/Interval History
-
Date of Service: July 06, 2023
pt constipated
Objective Data
-
Labs:
Laboratory Results
07/06/23
05:53
WBC 6.8
Hgb 10.3 L
Hct 30.2 L
Plt Count 248
Sodium 132 L
Potassium 3.7
Chloride 98
Carbon Dioxide 27
BUN 16
Creatinine 0.5 L
Glucose 101 H
Calcium 9.5
Total Bilirubin 0.8
AST 30
ALT 15
Alkaline Phosphatase 72
Vital Signs:
max temp for 24 hours
07/06/23
03:00
Temp 98.4 F
Vital Signs
Temp Pulse Resp BP Pulse Ox
99.0 F 55 16 136/47 94
07/06/23 12:12 07/06/23 12:12 07/06/23 12:12 07/06/23 12:12 07/06/23 12:12
I&O
07/05/23 07/06/23 07/07/23
06:59 06:59 06:59
Intake Total 580 / 580 960 / 960
Balance 580 / 580 960 / 960
Review of Systems
-
All other systems: Reviewed and negative
Physical Exam
-
General: Well Developed, Well Nourished and No Apparent Distress
HEENT: Normocephalic and Atraumatic
Respiratory: Clear to Auscultation; Negative Wheezes or Rhonchi
Cardiac: Regular Rhythm and S1/S2; Negative Murmur
GI: Soft, Nontender, Nondistended and Normal Bowel Sounds
Musculoskeletal: No Clubbing, No Cyanosis and No Edema
[2023-07-06] MEDS: LOW STRENGTH ASPIRIN PO ×2 (12:46→19:59)
[2023-07-06] MEDS: TYLENOL PO ×2 (15:09→19:59)
[2023-07-06] MEDS: GLYCERIN SUPPOSITORY ADULT 1 SUPP RECTAL (19:11)
[2023-07-06] MEDS: SENOKOT PO (19:59)
[2023-07-06] MEDS: COLACE PO (19:59)
[2023-07-07] MEDS: APRESOLINE 10 MG IV (00:14)
[2023-07-07] MEDS: FLUSH (NSS) 2 FLUSH IV (00:17)
[2023-07-07] MEDS: TYLENOL PO ×3 (00:31→13:15)
[2023-07-07] MEDS: ROXICODONE 5 MG PO (01:15)
[2023-07-07 03:42] VITALS: BP 159/62
[2023-07-07 07:05] LABS: Blood Urea Nitrogen 18 mg/dl (7-17); Carbon Dioxide 27 mmol/L (22-30); Chloride 97 mmol/L (98-107); Estimated Creatinine Clearance 66 ml/min; Glucose 92 mg/dl (70-99); Potassium 3.4 mmol/L (3.5-5.1); Sodium 129 mmol/L (135-145); eGFR > 60.00
[2023-07-07 07:15] VITALS: BP 172/62
--- NOTE | 2023-07-07 07:27 | W.PN.HOSP.TC ---
Today's Communication/Plan
-
dc
Assessment / Plan
Assessment / Plan
pt is an 88 year old female
mechanical fall without prodrome--foot stuck--Right Hip Fracture--apprec ortho--cleared and post op day 2--PT/OT--asa for DVT proph
Hyponatremia--sodium 129. Stable. 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 chronic--cont fluid restriction. BMP in one week
Hypokalemia, mild at 3.4. she declined oral replacement, c/w diet
Mild acute blood loss anemia, post op, expected. c/w oral diet.
Essential Hypertension--slightly uncontrolled, Will add Norvasc. Continue atenolol & Lasix. No chest pain, no headache.
DVT proph: SCDs
Code Status: Full Code
Physical Exam
-
General: Well Developed, Well Nourished and No Apparent Distress
HEENT: Normocephalic and Atraumatic
Respiratory: Clear to Auscultation; Negative Wheezes or Rhonchi
Cardiac: Regular Rhythm and S1/S2; Negative Murmur
GI: Soft, Nontender, Nondistended and Normal Bowel Sounds
Musculoskeletal: No Clubbing, No Cyanosis and No Edema
Psych no agitation
Neurology: she followed commands. AAOX3
Total discharge time spent to see the patient, examine the patient on the floor, review data and lab results, discuss discharge plan with patient, nursing staff around 65 minutes.
Anticipated Discharge: Today
Subjective/Interval History
-
Date of Service: July 07, 2023
No chest pain\\No sob
No fevers
Objective Data
-
Labs:
Laboratory Results
07/07/23
05:16
Sodium 129 L
Potassium 3.4 L
Chloride 97 L
Carbon Dioxide 27
BUN 18 H
Creatinine 0.5 L
Glucose 92
Calcium 9.0
Vital Signs:
Vital Signs
Temp Pulse Resp BP Pulse Ox
98.5 F 65 16 159/62 95
07/07/23 03:42 07/07/23 03:42 07/07/23 03:42 07/07/23 03:42 07/07/23 03:42
I&O
07/06/23 07/07/23 07/08/23
06:59 06:59 06:59
Intake Total 960 / 960 720 / 720
Balance 960 / 960 720 / 720
[2023-07-07] MEDS: NORVASC 5 MG PO (08:23)
[2023-07-07] MEDS: TENORMIN 50 MG PO (08:23)
[2023-07-07] MEDS: LASIX 20 MG PO (08:23)
[2023-07-07] MEDS: TYLENOL 650 MG PO (08:25)
[2023-07-07] MEDS: KCL PO ×2 (08:25→08:30)
[2023-07-07] MEDS: RESTASIS 0.05% OPHTHALMIC EMULSION 1 DROPS LEFT EYE (08:25)
[2023-07-07] MEDS: COLACE 100 MG PO (08:26)
[2023-07-07] MEDS: LOW STRENGTH ASPIRIN 81 MG PO (08:26)
[2023-07-07] MEDS: RESTASIS 0.05% OPHTHALMIC EMULSION 1 DROPS RIGHT EYE (08:26)
[2023-07-07] MEDS: OCUVITE SOFTGEL PO (08:26)
[2023-07-07] MEDS: SENOKOT PO (08:27)
[2023-07-07 09:33] VITALS: BP 139/53; PULSE 62; O2SAT 96
[2023-07-07] MEDS: KCL 40 MEQ PO (10:10)
[2023-07-07 10:15] VITALS: BP 141/57; PULSE 59; O2SAT 95
--- NOTE | 2023-07-07 10:15 | W.PN.NEPH.PH ---
Today's Communication / Plan
-
see plan
Assessment/Plan
-
Impression:
Euvolemic hyponatremia
Hypertension
Status post fall with subsequent right hip fracture
Plan:
Sodium slightly down today likely from free water intake
reviewed with pt of strictly following FR
will dose smasca before d/c
cont lasix 20mg daily at d/c
BP are high , Amlodipine added per primary
replace k
BMP in 5-7days
f/u PCP
nephro if needed
d/w nursing and pt
-
-
Date of Service: July 07, 2023
CC / HPI / ROS
-
Chief Complaint:
hyponatremia
History of Present Illness:
Na down to 129 with lasix, 07/04 samsca
s/p right JUSTIN 07/03
BP high this am
k 3.4
Review of Systems:
no CP/SOB
no N/V
constipation better
pain controlled
Labs
-
Labs:
WBC 6.8 10^3/uL (4.8-10.8) 07/06/23 05:53
RBC 3.45 10^6/uL (4.20-5.40) L 07/06/23 05:53
Hgb 10.3 g/dL (12.0-16.0) L 07/06/23 05:53
Hct 30.2 % (37.0-47.0) L 07/06/23 05:53
Plt Count 248 10^3/uL (130-400) 07/06/23 05:53
Sodium 129 mmol/L (135-145) L 07/07/23 05:16
Potassium 3.4 mmol/L (3.5-5.1) L 07/07/23 05:16
Chloride 97 mmol/L (98-107) L 07/07/23 05:16
Carbon Dioxide 27 mmol/L (22-30) 07/07/23 05:16
BUN 18 mg/dl (7-17) H 07/07/23 05:16
Creatinine 0.5 mg/dL (0.6-1.0) L 07/07/23 05:16
eGFR > 60.00 07/07/23 05:16
Glucose 92 mg/dl (70-99) 07/07/23 05:16
Calcium 9.0 mg/dl (8.4-10.2) 07/07/23 05:16
Albumin 2.6 g/dl (3.5-5.0) L 07/06/23 05:53
Physical Exam
-
Vital Signs:
Vital Signs
Temp Pulse Resp BP Pulse Ox
98.8 F 68 18 172/62 94
07/07/23 07:15 07/07/23 08:23 07/07/23 07:15 07/07/23 08:23 07/07/23 07:15
Cardiovascular:: Regular rate and rhythm
Respiratory:: Bilateral: CTA
Lung Excursion:: Normal
Abdomen:: Nontender and Soft
Extremity Edema:: None: Bilateral:
Villela Catheter: No
[2023-07-07] MEDS: SAMSCA 15 MG PO (11:23)
[2023-07-07 11:45] VITALS: BP 135/57
--- NOTE | 2023-07-07 12:30 | CM ---
Addendum entered by Zaira Singer 07/07/23 13:34:
[facility] Phone- [phone] Fax- [phone]
Original Note:
CM reviewed chart and noted dc order
Bedside meeting with pt and son
Beds offered at [facility] and [facility]- they selected [facility]
[employer] auth received for both SNF and BLS
Transport forms on chart
IMM verbally completed- copy provided
[facility] auth# [id number] 9 days level I
[facility] auth# [id number]
Discharge Disposition- [facility] via [facility] pickup [id number]
--- NOTE | 2023-07-07 14:43 | W.DCSUMMARY ---
Discharge Summary
Discharge Data
Date of Admission: 07/02/23
Date of Discharge: 07/07/23
-
Pending Results: No
Hospital Course
88 years old female admitted after a fall. She was found to have right femoral neck fracture. She was evaluated by orthopedic doctor. She underwent total right hip hemiarthroplasty by Dr. Miller on 07/04/23. No complications reported. Patient
was found to have euvolemic hyponatremia with sodium around 125-126. Patient was evaluated by coal carrier. She received tolvaptan treatment and was started on low-dose furosemide. She was noted to have uncontrolled blood pressure and amlodipine
was added to her blood pressure medication regimen. Patient tolerated medications well. Sodium improved to 129-132. Photographic Double recommended outpatient follow-up with her primary care doctor and to continue furosemide With fluid restriction.
Patient remained hemodynamically stable and was evaluated by physical therapy. Patient had constipation was given laxative with good bowel movement. [facility] condition.
Discharge Plan
-
Patient Disposition: [facility]dc/SNF
Discharge Diagnosis/Procedures: Mechanical fall resulting in right hip fracture status post open reduction internal fixation, hyponatremia, essential hypertension, hypokalemia.
Condition: Good
Diet: As tolerated and Regular
Additional Diets: 1200 mL/day fluid restriction (40 ounces)
Activity: As tolerated
Additional Activity: Weightbearing as tolerated with walker. Posterior hip precautions for 6 weeks
Driving Restrictions: Not until seen by your Dr
Bathing Restrictions: OK to Shower
Blood Work: BMP in 5 days
Wound Care: Maintain dressing to right hip until at least 7 to 10 days from date of surgery. May change after that or maintain until first follow-up visit
Referrals:
Erasmo Miller MD [Active] - (Please contact the office [phone] to schedule first postoperative visit 2 weeks from date of surgery for wound check. Please contact sooner for questions or concerns)
Kostas Blackburn PA-C [Family Provider] - in less than 1 week
Prescriptions:
New
sennosides [Senna Laxative] 8.6 mg Tablet
17.2 mg PO HS Qty: 10 0RF
amlodipine 5 mg Tablet
5 mg PO DAILY Qty: 30 0RF
docusate sodium 100 mg Capsule
100 mg PO BID Qty: 60 0RF
aspirin [Children's Aspirin] 81 mg Tablet,Chewable
81 mg PO BID Qty: 60 0RF
furosemide 20 mg Tablet
20 mg PO DAILY Qty: 30 0RF
Continued
atenolol 50 mg tablet
50 mg PO DAILY
cyclosporine [Restasis] 0.05 % dropperette
1 drp LEFT EYE BID
cyclosporine [Restasis] 0.05 % dropperette
1 drp RIGHT EYE DAILY
PreserVision AREDS 2,148 mcg-113 mg-45 mg-17.4mg Tablet
1 tab PO BID
Discharge Orders:
Discharge Patient (As Directed); Ordered 07/07/23
Ordered By: Mamta Pozo
Discharge Date and Time
Discharge Date/Time: 07/07/23 14:31
Print Language: CHINESE
== END 2023-07-07 14:31 | DRG 522 ==
LOC: 2 SOUTH 18:19
PROVIDERS: Physician Assistant Medical; Specialist; ADMITTING PHYSICIAN Internal Medicine; ATTENDING PHYSICIAN Internal Medicine; CONSULT PHYSICIAN Orthopaedic Surgery Hand Surgery; CONSULT PHYSICIAN Specialist; EMERGENCY PHYSICIAN Emergency Medicine; FAMILY PHYSICIAN Physician Assistant Medical
PROC: 0SRR0J9 Replacement of Right Hip Joint, Femoral Surface with Synthetic Substitute, Cemented, Open Approach (ICD-10-PCS; 2023-07-04)
DX: M80.051A Age-related osteoporosis with current pathological fracture, right femur, initial encounter for fracture (principal); E22.2 Syndrome of inappropriate secretion of antidiuretic hormone; D62 Acute posthemorrhagic anemia; E78.00 Pure hypercholesterolemia, unspecified; I10 Essential (primary) hypertension; W01.0XXA Fall on same level from slipping, tripping and stumbling without subsequent striking against object, initial encounter; Y93.9 Activity, unspecified; Y92.9 Unspecified place or not applicable; H35.30 Unspecified macular degeneration; R44.1 Visual hallucinations; E87.6 Hypokalemia; K59.00 Constipation, unspecified; Z87.891 Personal history of nicotine dependence
CPT/HCPCS: 71045; 73502; 80048; 80051; 80053; 81003; 81015; 83735; 83930; 83935; 84300; 84443; 85025; 85027; 86850; 86900; 86901; 87086; 97116; 97162; 97166; 97530; 97535; 99284; C1713; C1776